=== PATIENT | male | born 1995 | race Caucasian/White ===

== ENCOUNTER 2021-02-10 06:29 | Emergency (ER) | payer OTHER ==
[~2021-02-10] VITALS: Ht 195.6 cm; Wt 108.9 kg
[2021-02-10 07:37] LABS: ABSOLUTE EOSINOPHILS 0.1 thou/uL (0.0-0.7); ABSOLUTE MONOCYTES 0.6 thou/uL (0.0-1.2); ABSOLUTE NEUTROPHILS 2.7 thou/uL (1.6-8.1); BASOPHILS 0.6 %; EOSINOPHILS 2.2 %; HEMATOCRIT 41.8 % (42.0-52.0); HEMOGLOBIN 14.7 gm/dL (14.0-18.0); LYMPHOCYTES 36.9 %; MCH 29.7 pg (26.0-34.0); MCHC 35.1 g/dL (28.0-37.0); MCV 84.7 fL (80.0-100.0); MONOCYTES 10.2 %; MPV 9.1 fl. (7.2-11.1); NUCLEATED RBCS 0 /100WBC; PLATELET COUNT* 213 thou/uL (150-400); POLYS 50.1 %; RBC 4.93 mil/uL (4.50-6.00); RDW-CV 12.5 % (10.5-14.5); WBC 5.4 thou/uL (4.0-11.0)
[2021-02-10 07:45] LABS: CALCIUM 8.7 mg/dL (8.5-10.1); POTASSIUM 4.1 mmol/L (3.5-5.1)
[2021-02-10 07:50] LABS: TOTAL BILIRUBIN 0.3 mg/dL (<0.1-1.0); TOTAL PROTEIN 7.4 g/dL (6.4-8.2)
[2021-02-10 07:59] LABS: URINE BILIRUBIN NEGATIVE (Negative); URINE BLOOD NEGATIVE (Negative); URINE CLARITY CLEAR; URINE COLOR YELLOW; URINE GLUCOSE-RANDOM NEGATIVE (Negative); URINE KETONES NEGATIVE (Negative); URINE LEUKOCYTES-REFLEX NEGATIVE (Negative); URINE NITRITE-REFLEX NEGATIVE (Negative); URINE PROTEIN NEGATIVE (Negative); URINE SPECIFIC GRAVITY 1.025 (1.005-1.030); URINE UROBILINOGEN 0.2 E.U./dl (0.2-1.0)
[2021-02-10 09:28] VITALS: BP 109/71
--- NOTE | 2021-02-10 11:38 | EKG ---
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 : 1995 Requested By: Wilver Carlson Order Number: [id number] MD: Jevon López Measurements Intervals [place] Rate: 55 P: 19 HI: 136 QRS: 58 QRSD: 89 T: 32 QT: 419 QTc: 401 Interpretive Statements Sinus bradycardia Baseline wander in lead(s) V4 No previous ECG available for comparison Electronically Signed On 02-10-2021 11:38:11 CDT by Jevon López [email or web address] <ELECTRONICALLY SIGNED> By: Jevon López MD, [facility] 02/10/21 1138 0 0 Jevon López MD, [facility] /EPI
== END 2021-02-10 09:30 | disposition home or self-care (01) ==
LOC: M.ERS 06:29
PROVIDERS: Family Medicine
DX: R10.31 Right lower quadrant pain (principal); R10.32 Left lower quadrant pain; R10.11 Right upper quadrant pain; R11.0 Nausea; R42 Dizziness and giddiness